=== PATIENT | male | born 1980 | race Caucasian/White ===

== ENCOUNTER 2017-11-20 01:02 | Inpatient (IN) | payer OTHER ==
[~2017-11-20] VITALS: Ht 175.3 cm; Wt 72.3 kg
[2017-11-20] MEDS ORDERED: HYDROmorphone 2 MG/ML, 1ML ONE ×3 (01:29→09:26)
[2017-11-20] MEDS ORDERED: ONDANSETRON 2MG/ML, 2ML ONE (01:29)
[2017-11-20] MEDS ORDERED: KETOROLAC 30 MG/1 ML ONE (01:29)
[2017-11-20] MEDS ORDERED: KETOROLAC 30 MG/1 ML IV ONE (01:30)
[2017-11-20] MEDS ORDERED: ONDANSETRON 2MG/ML, 2ML IVPush ONE (01:30)
[2017-11-20] MEDS ORDERED: SODIUM CHLORIDE FLUSH 10ML SYR IVF ONE (01:30)
[2017-11-20] MEDS: HYDROmorphone 1 MG/ML, 1ML IVPush PRN ×2 (01:31→04:10)
[2017-11-20] MEDS ORDERED: DIAZEPAM 5 MG/ML, 2ML IV STA (02:36)
[2017-11-20] MEDS ORDERED: HYDROmorphone 1 MG/ML, 1ML IV STA (03:54)
[2017-11-20] MEDS ORDERED: DEXAMETHASONE 4 MG/ML, 1ML IVPush ONE (04:00)
[2017-11-20] MEDS ORDERED: DEXAMETHASONE 4 MG/ML, 1ML ONE ×2 (04:02→09:35)
[2017-11-20] MEDS ORDERED: HYDROmorphone 1 MG/ML, 1ML IV ONE (06:30)
[2017-11-20] MEDS ORDERED: morphine SULFATE 10 MG/ML, 1ML IVPush PRN (09:30)
[2017-11-20] MEDS ORDERED: ENALAPRILAT 1.25 MG/ML, 2ML IVPush PRN (09:30)
[2017-11-20] MEDS ORDERED: POLYETHYLENE GLYCOL 17 GM PACKET PO PRN (09:30)
[2017-11-20] MEDS ORDERED: BISACODYL 10 MG SUPP PR PRN (09:30)
[2017-11-20] MEDS ORDERED: hydrALAzine 20 MG/ML, 1ML IVPush PRN (09:30)
[2017-11-20] MEDS ORDERED: ONDANSETRON 2MG/ML, 2ML IVPush PRN (09:30)
[2017-11-20] MEDS ORDERED: ACETAMINOPHEN 325 MG TABLET PO PRN (09:30)
[2017-11-20] MEDS: SENNA/DOCUSATE TABLET PO SCH (09:30)
[2017-11-20] MEDS ORDERED: HEPARIN 5,000 UNITS/ML, 1ML ONE (09:36)
[2017-11-20] MEDS: DEXAMETHASONE 4 MG/ML, 1ML IVPush SCH ×3 (09:50→21:40)
[2017-11-20] MEDS: METHOCARBAMOL 500 MG TABLET PO SCH ×3 (09:50→21:39)
[2017-11-20] MEDS: HEPARIN 5,000 UNITS/ML, 1ML SQ SCH ×2 (09:52→21:39)
[2017-11-20] MEDS: GABAPENTIN 100 MG CAPSULE PO SCH ×3 (10:52→21:39)
[2017-11-20] MEDS: HYDROmorphone 1 MG/ML, 1ML IV PRN ×4 (11:59→23:05)
[2017-11-20 14:00] VITALS: BP 117/69
[2017-11-20 20:00] VITALS: BP 99/60
[2017-11-21 02:00] VITALS: BP 109/66
[2017-11-21] MEDS: DEXAMETHASONE 4 MG/ML, 1ML IVPush SCH ×2 (03:38→09:21)
[2017-11-21] MEDS: HEPARIN 5,000 UNITS/ML, 1ML SQ SCH ×3 (05:00→20:43)
[2017-11-21 05:04] LABS: HEMATOCRIT 40.9 % (39.2-51.8); HEMOGLOBIN 13.3 g/dL (13.7-18.0); WHITE BLOOD COUNT 15.1 x10^3/uL (3.4-10)
[2017-11-21 05:33] LABS: ASPARTATE AMINO TRANSFERASE 21 U/L (15-37); BLOOD UREA NITROGEN 23 mg/dL (7-18)
[2017-11-21] MEDS: HYDROmorphone 1 MG/ML, 1ML IV PRN ×6 (05:36→22:25)
[2017-11-21] MEDS: GABAPENTIN 100 MG CAPSULE PO SCH ×4 (05:44→20:43)
[2017-11-21 07:20] VITALS: BP 121/76
[2017-11-21] MEDS: OXYcodone IR 5MG TABLET PO PRN ×3 (07:34→18:24)
[2017-11-21] MEDS: METHOCARBAMOL 500 MG TABLET PO SCH ×3 (09:00→20:43)
[2017-11-21] MEDS: SENNA/DOCUSATE TABLET PO SCH (09:15)
[2017-11-21] MEDS: DEXAMETHASONE 4 MG TABLET PO SCH ×3 (12:30→20:40)
[2017-11-21] MEDS ORDERED: DEXAMETHASONE 1 MG TABLET ONE (12:47)
[2017-11-21] MEDS: FAMOTIDINE 20 MG TABLET PO SCH ×2 (12:51→20:40)
[2017-11-21 13:36] VITALS: BP 107/67
[2017-11-21 20:37] VITALS: BP 108/63
[2017-11-22 03:50] LABS: HEMATOCRIT 38.9 % (39.2-51.8); HEMOGLOBIN 12.8 g/dL (13.7-18.0); WHITE BLOOD COUNT 15.5 x10^3/uL (3.4-10)
[2017-11-22] MEDS: HYDROmorphone 1 MG/ML, 1ML IV PRN ×6 (03:57→23:08)
[2017-11-22 03:59] VITALS: BP 109/71
[2017-11-22 04:01] LABS: BLOOD UREA NITROGEN 19 mg/dL (7-18)
[2017-11-22] MEDS: HEPARIN 5,000 UNITS/ML, 1ML SQ SCH ×3 (06:06→23:09)
[2017-11-22] MEDS: OXYcodone IR 5MG TABLET PO PRN ×4 (06:06→20:50)
[2017-11-22] MEDS: DEXAMETHASONE 4 MG TABLET PO SCH ×4 (06:06→20:50)
[2017-11-22] MEDS: GABAPENTIN 100 MG CAPSULE PO SCH ×4 (06:07→20:50)
[2017-11-22 07:49] VITALS: BP 105/66
[2017-11-22] MEDS: SENNA/DOCUSATE TABLET PO SCH (09:59)
[2017-11-22] MEDS: METHOCARBAMOL 500 MG TABLET PO SCH ×3 (09:59→20:50)
[2017-11-22] MEDS: FAMOTIDINE 20 MG TABLET PO SCH ×2 (09:59→20:50)
[2017-11-22 11:56] VITALS: BP 111/68
[2017-11-22 20:11] VITALS: BP 125/75
[2017-11-23 00:51] VITALS: BP 114/70
[2017-11-23] MEDS: GABAPENTIN 100 MG CAPSULE PO SCH ×4 (05:58→20:34)
[2017-11-23] MEDS: HYDROmorphone 1 MG/ML, 1ML IV PRN ×3 (05:58→14:22)
[2017-11-23] MEDS: DEXAMETHASONE 4 MG TABLET PO SCH ×4 (05:58→20:34)
[2017-11-23 08:11] VITALS: BP 138/75
[2017-11-23] MEDS: METHOCARBAMOL 500 MG TABLET PO SCH ×3 (08:12→20:34)
[2017-11-23] MEDS: SENNA/DOCUSATE TABLET PO SCH (08:12)
[2017-11-23] MEDS: FAMOTIDINE 20 MG TABLET PO SCH ×2 (08:13→20:34)
[2017-11-23] MEDS: OXYcodone IR 5MG TABLET PO PRN ×3 (08:13→20:34)
[2017-11-23] MEDS: HEPARIN 5,000 UNITS/ML, 1ML SQ SCH ×2 (08:13→17:57)
[2017-11-23] MEDS: IBUPROFEN 600 MG TABLET PO PRN ×2 (11:52→17:57)
[2017-11-23 13:16] VITALS: BP 115/73
[2017-11-23] MEDS ORDERED: METH500T7 PO (16:00)
[2017-11-23] MEDS ORDERED: DEXA4TAB PO (16:00)
[2017-11-23] MEDS ORDERED: SENN1TAB7 PO (16:00)
[2017-11-23] MEDS ORDERED: GABA300C10 PO (16:00)
[2017-11-23] MEDS ORDERED: FAMO20TA7 PO (16:00)
[2017-11-23] MEDS ORDERED: OXYC5TAB3 PO (16:00)
[2017-11-23] MEDS ORDERED: IBUP-1222 PO (16:00)
[2017-11-23] MEDS ORDERED: IBUPROFEN 200 MG TABLET ONE (17:49)
[2017-11-23 19:33] VITALS: BP 130/73
[2017-11-23] MEDS ORDERED: DIPHENHYDRAMINE 50 MG CAPSULE PO ONE (21:30)
[2017-11-23] MEDS ORDERED: DIPHENHYDRAMINE 25 MG CAPSULE ONE (22:31)
[2017-11-24] MEDS: OXYcodone IR 5MG TABLET PO PRN ×3 (01:15→10:19)
[2017-11-24] MEDS: HEPARIN 5,000 UNITS/ML, 1ML SQ SCH ×2 (01:16→10:00)
[2017-11-24 01:31] VITALS: BP 105/67
[2017-11-24] MEDS: GABAPENTIN 100 MG CAPSULE PO SCH ×2 (05:32→10:20)
[2017-11-24] MEDS: DEXAMETHASONE 4 MG TABLET PO SCH ×2 (05:32→10:19)
[2017-11-24 08:19] VITALS: BP 120/75
[2017-11-24] MEDS: IBUPROFEN 600 MG TABLET PO PRN (10:19)
[2017-11-24] MEDS: FAMOTIDINE 20 MG TABLET PO SCH (10:19)
[2017-11-24] MEDS: SENNA/DOCUSATE TABLET PO SCH (10:19)
[2017-11-24] MEDS: METHOCARBAMOL 500 MG TABLET PO SCH (10:23)
== END 2017-11-24 12:10 | disposition home or self-care (01) | DRG 552 ==
LOC: ED 05:49 → EDIP 06:11 → 4EST 10:47 → 4WST 16:19 → DCLOUNGE 11-24 11:50
PROVIDERS: ADMIT Hospitalist; ATTEND Hospitalist
DX: M48.061 Spinal stenosis, lumbar region without neurogenic claudication (principal); M51.16 Intervertebral disc disorders with radiculopathy, lumbar region; Z79.899 Other long term (current) drug therapy
CPT/HCPCS: 36415; 72131; 72148; 80048; 80053; 80061; 81003; 83036; 83735; 84439; 84443; 85025; 96374; 96375; 96376; J1100; J1170; J1644; J1885; J2405; J3360